=== PATIENT | male | born 1995 | race Caucasian/White ===

== ENCOUNTER 2018-07-10 00:32 | Emergency (ER) | payer BC ==
[~2018-07-10] VITALS: Ht 175.3 cm; Wt 85.0 kg
[2018-07-10 00:33] VITALS: BP 152/89
[2018-07-10] MEDS ORDERED: LIDOCAINE-MPF 1%, 5ML ONE (01:29)
[2018-07-10] MEDS ORDERED: LIDOCAINE 1%, 2ML INFIL ONE (01:30)
[2018-07-10] MEDS ORDERED: BACITRACIN ZINC OINT 500U/GM, 0.9 GM ONE (01:57)
== END 2018-07-10 02:07 | disposition home or self-care (01) ==
LOC: ED 00:43
DX: S61.012A Laceration without foreign body of left thumb without damage to nail, initial encounter (principal); Z87.891 Personal history of nicotine dependence; W26.0XXA Contact with knife, initial encounter; Y93.89 Activity, other specified; Y92.009 Unspecified place in unspecified non-institutional (private) residence as the place of occurrence of the external cause; Y99.8 Other external cause status
CPT/HCPCS: 12001; 99283